=== PATIENT | female | born 1975 | race Caucasian/White ===

== ENCOUNTER → 2021-04-10 11:23 | Outpatient (CLI) | payer OTHER, SELFPAY ==
[2021-04-10 13:17] LABS: Add Manual Diff / Slide Review NO; Basophils Absolute Auto 100 /uL (0-100); Eosinophils Absolute Auto 200 /uL (0-450); Eosinophils Percent Auto 2.5 % (2-4); Hematocrit 36.8 % (36-46); Hemoglobin 12.4 g/dL (12.0-16.0); Lymphocytes Absolute Auto 2300 /uL (1100-4500); Mean Corpuscular HGB Conc 33.8 % (30-36); Mean Corpuscular Hemoglobin 27.4 PG (26-34); Mean Corpuscular Volume 81.1 fL (80-100); Monocytes Absolute Auto 600 /uL (0-900); Monocytes Percent Auto 7.9 % (3-14); Neutrophils Absolute Auto 4000 /uL (1500-7000); Neutrophils Percent Auto 56.6 % (50-75); Platelet Count 286 X10^3/uL (150-400); Red Blood Cell Count 4.54 X10^6/uL (4.0-5.2); Red Cell Distribution Width 13.8 % (11.6-14.8); White Blood Cell Count 7.1 X10^3/uL (4.5-11.0)
[2021-04-10 13:38] LABS: Erythrocyte Sedimentation Rate 32 MM/HR (0-20)
[2021-04-10 13:53] LABS: Alanine Aminotransferase 22 IU/L (<35); Albumin 4.5 g/dL (3.5-5.0); Albumin Globulin Ratio 1.5 (1.0-2.8); Alkaline Phosphatase 55 U/L (38-126); Aspartate Aminotransferase 24 IU/L (14-36); BUN Creatinine Ratio 15.9 (6-22); Bilirubin Total 0.5 mg/dL (0.2-1.3); Blood Urea Nitrogen 11 mg/dL (7-17); Calcium 9.8 mg/dL (8.4-10.2); Carbon Dioxide 26 mmol/L (22-32); Chloride 104 mmol/L (98-107); Estimated Glomerular Filt Rate > 60.0 mL/min (>60); Glucose 77 mg/dL (70-100); HEMOLYSIS < 15 (0-50); Potassium 4.2 mmol/L (3.4-5.1); Sodium 138 mmol/L (137-145); Total Protein 7.5 g/dL (6.3-8.2)
== END ==
PROVIDERS: PCP Physician Assistant; Referring Provider Physician Assistant; Visit Provider Physician Assistant
DX: M25.50 Pain in unspecified joint (principal); Z86.32 Personal history of gestational diabetes
CPT/HCPCS: 36415; 80053; 83036; 85025; 85651

== ENCOUNTER → 2021-10-17 08:05 | Outpatient (CLI) | payer OTHER, SELFPAY ==
--- NOTE | 2021-10-17 | DI.ECHO.S_ITS ---
[facility]---------+ [facility] +---------+ : : [address] : [place] [address] : : : : [id number] : : : : Phone: [phone]+ Echocardiogram Report + + :Name: CHAPIN HURTADO Study Date: 10/17/2021 Height: 64 in : :[facility] ReadingLocation: Weight: 182 lb : : Gender: Female BSA: 1.9 m2 : :: 1975 Age: 46 yrs BP: 142/90 mmHg: :Reason For Study: Aortic valve regurgitation : :Ordering Physician: LORRAINE, : :ARIAN Performed By: Willis Hillman : :Referring: ARIAN PETERS : + + Interpretation Summary The left ventricle is normal in size and wall thickness. The ejection fraction is estimated to be 60-65%. The right ventricle is normal in size and function. There is mild to moderate aortic regurgitation. The IVC is of normal diameter and collapses greater than 50% with a sniff. This suggests a low right atrial pressure of 3 mm Hg. Procedure: A two-dimensional transthoracic echocardiogram with color flow and Doppler was performed. The study quality was technically good. There is no prior echocardiogram noted for this patient. The patient was in normal sinus rhythm during the exam. Left Ventricle: The left ventricle is normal in size and wall thickness. There is no thrombus. Left ventricular systolic function is normal. The ejection fraction is estimated to be 60-65%. There are no focal wall motion abnormalities. Diastolic parameters suggest a relaxation abnormality of the left ventricle, consistent with probable normal filling pressures. Right Ventricle: The right ventricle is normal in size and function. Atria: Both atria are normal in size. The interatrial septum grossly appears intact with no obvious evidence for an atrial septal defect. Mitral Valve: The mitral valve leaflets appear borderline thickened, but open well. There is trace mitral regurgitation. Aortic Valve: There is discrete nodular thickening of the non- coronary cusp. The aortic valve is trileaflet. The aortic valve opens well. The aortic valve is mildly calcified. There is no aortic valve stenosis. There is mild to moderate aortic regurgitation. Tricuspid Valve: The tricuspid valve is normal in structure and function. There is trace tricuspid regurgitation. Pulmonary artery pressures cannot be estimated because of the lack of a measurable TR jet velocity. Pulmonic Valve: The pulmonic valve is normal in structure and function. There is no pulmonic valvular regurgitation. Great Vessels: The aortic root is normal size. The dimensions of the ascending aorta are normal. The IVC is of normal diameter and collapses greater than 50% with a sniff. This suggests a low right atrial pressure of 3 mm Hg. Pericardium/ Pleura There is no pericardial effusion. There is no pleural effusion. MMode/2D Measurements & Calculations LVIDd: 4.8 cm LVOT diam: 2.1 cm LVIDs: 3.2 cm asc Aorta Diam: 3.4 cm FS: 33.3 % IVSd: 0.90 cm LVPWd: 1.0 cm LV brady. diameter/BSA (cm/m^2): 2.6 LV sys. diameter/BSA (cm/m^2): 1.7 LA dimension: 3.1 cm RA long axis: 4.6 cm LA A2 area: 15.3 cm2 LA A4 area: 17.9 cm2 LA length (vol): 5.4 cm LA vol: 42.9 ml LA vol index: 22.8 ml/m2 TAPSE_phl: 2.7 cm Doppler Measurements & Calculations Ao V2 max: 142.0 cm/sec LVOT Max Kenyon: 126.0 cm/sec Ao V2 mean: 109.0 cm/sec LV V1 max P.4 mmHg Ao max P.0 mmHg LV V1 VTI: 25.9 cm Ao mean P.0 mmHg JEWEL(I,D): 2.8 cm2 Ao V2 VTI: 32.1 cm JEWEL(V,D): 3.1 cm2 sev ratio: 0.81 JEWEL indexed to BSA (cm^2/m^2): 1.5 AI P1/2t: 709.2 msec AI dec slope: 182.5 cm/sec2 MV E max kenyon: 76.2 cm/sec SV(LVOT): 89.7 ml MV A max kenyon: 78.1 cm/sec MV E/A: 0.98 Med Peak E' Kenyon: 6.6 cm/sec E/E' med: 11.6 Lat Peak E' Kenyon: 11.1 cm/sec E/E' lat: 6.9 E/e' average: 9.2 MV dec time: 0.19 sec AV VR_phl: 0.89 MV P1/2t-pr_phl: 54.0 msec JEWEL(VTI)/BSA_phl: 1.5 Reading Physician:11:23 AM
== END ==
PROVIDERS: PCP Family Medicine; Referring Provider Family Medicine; Visit Provider Physician Assistant
DX: I35.1 Nonrheumatic aortic (valve) insufficiency (principal)
CPT/HCPCS: 93306

== ENCOUNTER → 2021-11-07 08:38 | Outpatient (CLI) | payer OTHER, SELFPAY ==
[2021-11-07 09:14] LABS: Add Manual Diff / Slide Review NO; Basophils Absolute Auto 100 /uL (0-100); Basophils Percent Auto 1.1 % (0-2); Eosinophils Absolute Auto 200 /uL (0-450); Eosinophils Percent Auto 2.5 % (2-4); Hematocrit 37.8 % (36-46); Hemoglobin 12.8 g/dL (12.0-16.0); Lymphocytes Absolute Auto 1900 /uL (1100-4500); Lymphocytes Percent Auto 25.9 % (25-40); Mean Corpuscular Hemoglobin 27.3 PG (26-34); Mean Corpuscular Volume 80.5 fL (80-100); Monocytes Absolute Auto 600 /uL (0-900); Monocytes Percent Auto 7.8 % (3-14); Neutrophils Absolute Auto 4600 /uL (1500-7000); Neutrophils Percent Auto 62.7 % (50-75); Platelet Count 284 X10^3/uL (150-400); Red Blood Cell Count 4.69 X10^6/uL (4.0-5.2); Red Cell Distribution Width 14.4 % (11.6-14.8); White Blood Cell Count 7.4 X10^3/uL (4.5-11.0)
[2021-11-07 09:30] LABS: Alanine Aminotransferase 21 IU/L (<35); Albumin 4.3 g/dL (3.5-5.0); Albumin Globulin Ratio 1.3 (1.0-2.8); Alkaline Phosphatase 55 U/L (38-126); Aspartate Aminotransferase 23 IU/L (14-36); BUN Creatinine Ratio 16.2 (6-22); Bilirubin Total 0.5 mg/dL (0.2-1.3); Blood Urea Nitrogen 11 mg/dL (7-17); Calcium 8.9 mg/dL (8.4-10.2); Carbon Dioxide 25 mmol/L (22-32); Chloride 102 mmol/L (98-107); Cholesterol 165 mg/dL (140-199); Estimated Glomerular Filt Rate > 60 mL/min (>60); Globulin 3.4 g/dL (1.7-4.1); Glucose 89 mg/dL (70-100); HDL Cholesterol 58 mg/dL (40-60); HEMOLYSIS < 15 (0-50); LDL Cholesterol Calculated 89 mg/dL (<100); Potassium 3.9 mmol/L (3.4-5.1); Sodium 135 mmol/L (137-145); Total Protein 7.7 g/dL (6.3-8.2); Triglycerides 91 mg/dL (35-150)
[2021-11-07 09:38] LABS: Erythrocyte Sedimentation Rate 29 MM/HR (0-20)
[2021-11-07 09:56] LABS: Vitamin D 25 Hydroxy (D3) 50.7 ng/mL (30.0-100.0)
[2021-11-07 10:35] LABS: Folate 6.5 ng/mL (2.76-20.0); Vitamin B12 302 pg/mL (239-931)
== END ==
PROVIDERS: PCP Family Medicine; Referring Provider Family Medicine; Visit Provider Family Medicine
DX: I35.1 Nonrheumatic aortic (valve) insufficiency (principal); I10 Essential (primary) hypertension; J45.20 Mild intermittent asthma, uncomplicated; E56.9 Vitamin deficiency, unspecified; L12.1 Cicatricial pemphigoid
CPT/HCPCS: 36415; 80053; 80061; 82306; 82607; 82746; 85025; 85651

== ENCOUNTER → 2021-12-09 09:46 | Outpatient (CLI) | payer OTHER, SELFPAY ==
[2021-12-11 14:48] LABS: QuantiFERON Mitogen Value >10.00 IU/mL (.); QuantiFERON Nil Value 0.02 IU/mL (.); QuantiFERON TB Gold Plus Negative (Negative); QuantiFERON TB1 Ag Value 0.21 IU/mL (.); QuantiFERON TB2 Ag Value 0.05 IU/mL (.)
== END ==
PROVIDERS: PCP Family Medicine; Referring Provider Dermatology; Visit Provider Dermatology
DX: L40.0 Psoriasis vulgaris (principal)
CPT/HCPCS: 36415; 86480

== ENCOUNTER → 2022-05-15 08:18 | Outpatient (CLI) | payer OTHER, SELFPAY ==
[2022-05-15 08:42] LABS: Add Manual Diff / Slide Review NO; Basophils Absolute Auto 100 /uL (0-100); Eosinophils Absolute Auto 200 /uL (0-450); Eosinophils Percent Auto 3.2 % (2-4); Hematocrit 39.8 % (36-46); Hemoglobin 13.6 g/dL (12.0-16.0); Lymphocytes Absolute Auto 2400 /uL (1100-4500); Lymphocytes Percent Auto 37.5 % (25-40); Mean Corpuscular HGB Conc 34.3 % (30-36); Mean Corpuscular Hemoglobin 28.3 PG (26-34); Mean Corpuscular Volume 82.5 fL (80-100); Monocytes Absolute Auto 500 /uL (0-900); Monocytes Percent Auto 7.5 % (3-14); Neutrophils Absolute Auto 3300 /uL (1500-7000); Neutrophils Percent Auto 50.8 % (50-75); Platelet Count 276 X10^3/uL (150-400); Red Blood Cell Count 4.82 X10^6/uL (4.0-5.2); Red Cell Distribution Width 14.1 % (11.6-14.8); White Blood Cell Count 6.4 X10^3/uL (4.5-11.0)
[2022-05-15 08:59] LABS: Erythrocyte Sedimentation Rate 17 MM/HR (0-20)
[2022-05-15 09:19] LABS: Alanine Aminotransferase 23 IU/L (<35); Albumin 4.4 g/dL (3.5-5.0); Albumin Globulin Ratio 1.3 (1.0-2.8); Alkaline Phosphatase 55 U/L (38-126); Aspartate Aminotransferase 25 IU/L (14-36); BUN Creatinine Ratio 16.9 (6-22); Bilirubin Total 0.6 mg/dL (0.2-1.3); Blood Urea Nitrogen 11 mg/dL (7-17); Calcium 9.3 mg/dL (8.4-10.2); Carbon Dioxide 31 mmol/L (22-32); Chloride 101 mmol/L (98-107); Cholesterol 191 mg/dL (140-199); Estimated Glomerular Filt Rate > 60 mL/min (>60); Globulin 3.3 g/dL (1.7-4.1); Glucose 88 mg/dL (70-100); HDL Cholesterol 69 mg/dL (40-60); HEMOLYSIS < 15 (0-50); LDL Cholesterol Calculated 105 mg/dL (<100); Potassium 3.8 mmol/L (3.4-5.1); Sodium 139 mmol/L (137-145); Total Protein 7.7 g/dL (6.3-8.2); Triglycerides 83 mg/dL (35-150)
[2022-05-15 09:41] LABS: Microalbumin Urine Random < 0.6 mg/dL (0-1.6)
== END ==
PROVIDERS: PCP Family Medicine; Referring Provider Family Medicine; Visit Provider Family Medicine
DX: I10 Essential (primary) hypertension (principal); I35.1 Nonrheumatic aortic (valve) insufficiency; L12.1 Cicatricial pemphigoid; L40.50 Arthropathic psoriasis, unspecified
CPT/HCPCS: 36415; 80053; 80061; 82043; 82570; 85025; 85651

== ENCOUNTER 2023-12-26 18:20 | Emergency (ER) | payer OTHER, SELFPAY ==
[2023-12-26] VITALS (10 sets, daily range): BP systolic 174–219; BP diastolic 81–98; PULSE 60–72; RESP 14–24; TEMP 37; O2SAT 96–99; BMI 32.2
--- NOTE | 2023-12-26 18:36 | EKG_ITS ---
[place] [id number] [place] [id number] Test Date: 2023-12-26 Pat Name: Ashley Patel Department: Room: Gender: Female Hired Hand: DENY : 1975 Requested By: Order Number: [id number] Reading MD: Charles Marquis Measurements Intervals [place] Rate: 66 P: 11 MD: 148 QRS: -21 QRSD: 78 T: 11 QT: 392 QTc: 410 Interpretive Statements Normal sinus rhythm Minimal voltage criteria for LVH, may be normal variant ( R in aVL ) Cannot rule out Anterior infarct , age undetermined Electronically Signed On 12-29-2023 14:43:15 PDT by Charles Marquis
--- NOTE | 2023-12-26 18:36 | DI.RAD.S_ITS ---
PROCEDURE: XR CHEST 1V INDICATIONS: chest pain TECHNIQUE: One view of the chest was acquired. COMPARISON: None. FINDINGS: Surgical changes and devices: None. Lungs and pleura: Lungs are clear. No pleural effusions or pneumothorax. Mediastinum: Mediastinal contours appear normal. Heart size is normal. Bones and chest wall: No suspicious bony lesions. Overlying soft tissues appear unremarkable. IMPRESSION: No acute cardiopulmonary abnormality is seen. Dictated by: Zachary Alejandra M.D. on 12/26/2023 at 19:13 Approved by: Zachary Alejandra M.D. on 12/26/2023 at 19:13
[2023-12-26 18:57] LABS: Add Manual Diff / Slide Review NO; Basophils Absolute Auto 100 /uL (0-100); Basophils Percent Auto 1.3 % (0-2); Eosinophils Absolute Auto 300 /uL (0-450); Eosinophils Percent Auto 3.5 % (2-4); Hematocrit 41.3 % (36-46); Hemoglobin 13.8 g/dL (12.0-16.0); Lymphocytes Absolute Auto 2000 /uL (1100-4500); Lymphocytes Percent Auto 24.5 % (25-40); Mean Corpuscular HGB Conc 33.5 % (30-36); Mean Corpuscular Hemoglobin 28.4 PG (26-34); Mean Corpuscular Volume 84.7 fL (80-100); Monocytes Absolute Auto 700 /uL (0-900); Monocytes Percent Auto 8.5 % (3-14); Neutrophils Absolute Auto 5200 /uL (1500-7000); Neutrophils Percent Auto 62.2 % (50-75); Platelet Count 319 X10^3/uL (150-400); Red Blood Cell Count 4.88 X10^6/uL (4.0-5.2); Red Cell Distribution Width 13.5 % (11.6-14.8); White Blood Cell Count 8.4 X10^3/uL (4.5-11.0)
--- NOTE | 2023-12-26 19:21 | PC.NURSE ---
Pt awake and alert sitting in stretcher looking at phone. No distress noted at this time. No needs reported at this time. Pt connected to cardiac, blood pressure, pulse ox, and resp monitors with alarms on and audible. Call light within reach.
[2023-12-26 19:25] LABS: INR 0.9 (0.9-1.3); Prothrombin Time 10.4 SECONDS (9.4-12.5)
[2023-12-26 19:28] LABS: PTT Partial Thromboplastin Tim 34 SECONDS (25.1-36.5)
[2023-12-26 19:30] LABS: Alanine Aminotransferase 28 IU/L (<35); Albumin 4.6 g/dL (3.5-5.0); Albumin Globulin Ratio 1.4 (1.0-2.8); Alkaline Phosphatase 59 U/L (38-126); Aspartate Aminotransferase 27 IU/L (14-36); Bilirubin Total 0.4 mg/dL (0.2-1.3); Blood Urea Nitrogen 12 mg/dL (7-17); Calcium 9.4 mg/dL (8.4-10.2); Carbon Dioxide 24 mmol/L (22-32); Chloride 107 mmol/L (98-107); Creatine Kinase 40 U/L (30-135); Estimated Glomerular Filt Rate > 60 mL/min (>60); Globulin 3.3 g/dL (1.7-4.1); Glucose 87 mg/dL (70-100); HEMOLYSIS < 15 (0-50); Lipase 256 U/L (23-300); Magnesium 2.1 mg/dL (1.6-2.3); Potassium 3.8 mmol/L (3.4-5.1); Sodium 140 mmol/L (137-145); Total Protein 7.9 g/dL (6.3-8.2)
[2023-12-26 19:39] LABS: Influenza A - CEPHEID Flu A NEGATIVE (NEGATIVE); Influenza B - CEPHEID Flu B NEGATIVE (NEGATIVE)
[2023-12-26 19:42] LABS: NT-proBNP (BNP-Adult 18+) 94 pg/mL (<125); Troponin I < 0.012 ng/mL (0.01-0.034)
[2023-12-26 20:12] LABS: COVID-19 CEPHEID 4-PLEX PCR Negative (Negative)
--- NOTE | 2023-12-26 20:23 | ED.CHESTPAIN ---
HPI - Chest Pain General Chief Complaint: Chest Pain Stated Complaint: tired, tightness in chest, elevated blood pressure Time Seen by Provider: 12/26/23 19:47 Source: patient Mode of arrival: Family Vehicle Limitations: no limitations History of Present Illness HPI narrative: 48-year-old female with no known history of coronary artery disease, has one-week duration of cough, fatigue, right-sided chest discomfort that is worse with deep breathing and coughing. Referred from walk-in clinic for further evaluation. No fevers or chills recent. She has not currently taking any antibiotics. No history of blood clots, no leg pain or swelling symptoms. Related Data Home Medications Medication Instructions Recorded Confirmed betamethasone, augmented 0.05 % topical Psoriasis 06/05/23 11/23/23 lotion clonazepam 0.5 mg tablet 0.25 mg PO Anxiety 06/05/23 11/23/23 propranolol 10 mg tablet 10 mg PO Anxiety/nerves public 06/05/23 11/23/23 speaking risankizumab-rzaa 150 mg/mL mg SUBCUT Psoriatic arthritis 06/05/23 11/23/23 subcutaneous pen injector (James) betamethasone valerate 0.1 % topical QD-BID PRN 12/26/23 12/26/23 topical ointment fluocinolone 0.01 % topical body topical PRN 12/26/23 12/26/23 oil Previous Rx's Medication Instructions Recorded lisinopril 20 mg tablet 20 mg PO DAILY High blood pressure 10/08/23 #90 tabs vilazodone 10 mg tablet 10 mg PO DAILY Depression and 11/05/23 anxiety #90 tabs buspirone 5 mg tablet 5 mg PO BID #60 tabs 11/23/23 albuterol sulfate 90 mcg/actuation 2 puff inhalation Q6H PRN 12/26/23 aerosol inhaler shortness of breath or wheezing #8.5 grams Allergies Allergy/AdvReac Type Severity Reaction Status Date / Time ampicillin AdvReac Severe Hives Verified 12/26/23 19:01 [From ampicillin-sulbactam] sulbactam AdvReac Severe Hives Verified 12/26/23 19:01 [From ampicillin-sulbactam] Pencillins AdvReac Severe Hives Uncoded 12/26/23 18:54 Review of Systems Review of Systems Narrative: see HPI Patient History Medical History (Updated 12/26/23 @ 21:10 by Ender Escalona MD) Osteoarthritis (~2014) Allergies (~1978) Anxiety (~1993) Migraines (~1984) Headache Foot pain Chronic back pain (~2007) Carpal tunnel syndrome (~2004) Mumps (~1989) Chicken pox (~1987) Fibroids Lymphocytic colitis (~2014) PVCs (premature ventricular contractions) Aortic regurgitation Depression (~1993) Psoriatic arthritis (~2014) Psoriasis (~1985) Mucous membrane pemphigoid (~2016) Hypertension (~2004) Surgical History (Updated 06/30/23 @ 20:07 by Melanie Steve) Anesthesia History of microdiscectomy (~2014) Status post LASIK surgery (~2013) History of section (~2011) Status post hysteroscopic polypectomy (~2010) Family History (Updated 06/30/23 @ 20:12 by Melanie Steve) Father History of heart disease Hypertension Mental health problem Prostate cancer History of basal cell cancer Mother History of heart disease Sister Down syndrome History of heart disease Mental health problem Grandfather History of heart disease Grandfather History of heart disease Grandmother Breast cancer Social History Smoking Status: Former smoker Smoking Status: Former smoker tobacco type: cigarettes alcohol intake frequency: 0-2 drinks per day Substance Use Type: does not use Exam Narrative Exam Narrative: GENERAL: Well-developed patient, in mild distress. HEAD: Atraumatic. Normocephalic. EYES: Pupils equal round and reactive. Extraocular motions intact. No scleral icterus. No injection or drainage. ENT: Nose without bleeding, purulent drainage. Throat without erythema, tonsillar hypertrophy or exudate. Airway patent. NECK: Trachea midline. Non tender CARDIOVASCULAR: Regular rate and rhythm without murmurs, gallops, or rubs. RESPIRATORY: Clear to auscultation. Breath sounds equal bilaterally. No wheezes, rales, or rhonchi. GASTROINTESTINAL: Abdomen soft, non-tender, nondistended. EXTREMITIES: No edema or joint tenderness. BACK: Nontender without deformity or crepitance. No flank tenderness. NEURO: AOx3. Motor functions grossly nonfocal SKIN: No rash or erythema of visible areas Initial Vital Signs Initial Vital Signs: Vital Signs Pulse Rate 72 12/26/23 18:31 Pulse Oximetry 99 12/26/23 18:31 Course Orders Ordered: ED Orders 12/26/23 18:32 Covid-19 + FLU A/B by PCR Stat 12/26/23 18:36 XR chest 1V Stat EKG-12 Lead Stat 12/26/23 18:46 Complete Blood Count AUTO DIFF Stat Comprehensive Metabolic Panel Stat Lipase Stat Magnesium Stat NT-proBNP (BNP-Adult 18+) Stat PTT Partial Thromboplastin [facility] Stat Prothrombin Time INR Stat Troponin & CK Cardiac Panel Stat 12/26/23 20:06 RT Consult Eval and Treat NOW Vital Signs Vital signs: Vital Signs - 8 hr 12/26/23 18:31 12/26/23 18:32 12/26/23 18:32 Temperature Pulse Rate 72 72 Respiratory Rate Blood Pressure 219/98 H Pulse Oximetry 99 98 Oxygen Delivery Method 12/26/23 18:49 12/26/23 19:00 12/26/23 19:01 Temperature 98.6 F Pulse Rate 62 69 72 Respiratory Rate 18 24 21 Blood Pressure 219/98 H Pulse Oximetry 98 98 99 Oxygen Delivery Method Room Air Room Air Room Air 12/26/23 19:01 12/26/23 19:30 12/26/23 19:30 Temperature Pulse Rate 61 Respiratory Rate 20 Blood Pressure 210/94 H 174/81 H Pulse Oximetry 97 Oxygen Delivery Method Room Air 12/26/23 20:00 12/26/23 20:00 Temperature Pulse Rate 67 Respiratory Rate 22 Blood Pressure 184/86 H Pulse Oximetry 97 Oxygen Delivery Method Room Air MDM - Chest Pain Lab Data Attestation: I reviewed the patient's lab results. Lab results narrative: White blood cell count 8400, hemoglobin 13.8, platelets adequate. Basic metabolic function panel negative. LFTs normal. Lipase normal. Troponin negative. COVID/RSV/flu negative 12/26/23 18:46 12/26/23 18:46 Labs: Lab Results 12/26/23 12/26/23 Range/Units 18:32 18:46 WBC 8.4 (4.5-11.0) X10^3/uL RBC 4.88 (4.0-5.2) X10^6/uL Hgb 13.8 (12.0-16.0) g/dL Hct 41.3 (36-46) % MCV 84.7 (80-100) fL MCH 28.4 (26-34) PG MCHC 33.5 (30-36) % RDW 13.5 (11.6-14.8) % Plt Count 319 (150-400) X10^3/uL Neut % (Auto) 62.2 (50-75) % Lymph % (Auto) 24.5 L (25-40) % [place] % (Auto) 8.5 (3-14) % Eos % (Auto) 3.5 (2-4) % Baso % (Auto) 1.3 (0-2) % Neut # (Auto) 5200 (3446-7167) /uL Lymph # (Auto) 2000 (1339-3751) /uL [place] # (Auto) 700 (0-900) /uL Eos # (Auto) 300 (0-450) /uL Baso # (Auto) 100 (0-100) /uL PT 10.4 (9.4-12.5) SECONDS INR 0.9 (0.9-1.3) APTT 34 (25.1-36.5) SECONDS Sodium 140 (137-145) mmol/L Potassium 3.8 (3.4-5.1) mmol/L Chloride 107 (98-107) mmol/L Carbon Dioxide 24 (22-32) mmol/L BUN 12 (7-17) mg/dL Creatinine 0.75 (0.52-1.04) mg/dL Estimated GFR > 60 (>60) mL/min BUN/Creatinine Ratio 16.0 (6-22) Glucose 87 (70-100) mg/dL Calcium 9.4 (8.4-10.2) mg/dL Magnesium 2.1 (1.6-2.3) mg/dL Total Bilirubin 0.4 (0.2-1.3) mg/dL AST 27 (14-36) IU/L ALT 28 (<35) IU/L Alkaline Phosphatase 59 (38-126) U/L Total Creatine Kinase 40 (30-135) U/L Troponin I < 0.012 (0.01-0.034) ng/mL NT-Pro-B Natriuret Pep 94 (<125) pg/mL Total Protein 7.9 (6.3-8.2) g/dL Albumin 4.6 (3.5-5.0) g/dL Globulin 3.3 (1.7-4.1) g/dL Albumin/Globulin Ratio 1.4 (1.0-2.8) Lipase 256 (23-300) U/L SARS-CoV-2 (PCR) Negative (Negative) Influenza A (RT-PCR) Flu a negative (NEGATIVE) Influenza B (RT-PCR) Flu b negative (NEGATIVE) Imaging Data Chest x-ray: Radiologist's Impression: [address] [address] XRay Report Signed Patient: Ashley Patel MR#: [id number] : 1975 Acct:[id number] Age/Sex: 48 / F Date of Service: 12/26/23 Loc: ED Accession Number: [id number] Procedure: XR chest 1V Ordering Provider: Ender Escalona MD PROCEDURE: XR CHEST 1V INDICATIONS: chest pain TECHNIQUE: One view of the chest was acquired. COMPARISON: None. FINDINGS: Surgical changes and devices: None. Lungs and pleura: Lungs are clear. No pleural effusions or pneumothorax. Mediastinum: Mediastinal contours appear normal. Heart size is normal. Bones and chest wall: No suspicious bony lesions. Overlying soft tissues appear unremarkable. IMPRESSION: No acute cardiopulmonary abnormality is seen. Dictated by: Zachary Alejandra M.D. on 12/26/2023 at 19:13 Approved by: Zachary Alejandra M.D. on 12/26/2023 at 19:13 ECG Data Attestation: I personally reviewed and interpreted this ECG as follows: Interpretation: Normal sinus rhythm with rate of 66, no obvious ST segment elevation or depression changes. T-wave inversion lead 3 upright in leads 2 and F. NH 148, QRS 78, QTC 410. MDM Narrative Medical decision making narrative: 48-year-old female with recent coughing, right-sided chest discomfort, worse with deep breathing, some reproduction on palpation, likely chest wall. EKG reassuring, troponin negative. Doubt ACS. COVID/flu swabs negative. Chest x-ray unremarkable. Trial of albuterol for cough control. She declines Tessalon prescription, has not worked for her in the past. She has history of hypertension, elevated blood pressure noted, she is taking lisinopril 10 mg daily which has been higher dose in the past. Consider increased dose to 20 mg lisinopril for better blood pressure control, recheck early next week. Stable, discharged home, return precautions discussed Discharge Plan Departure Patient Disposition: Home Clinical Impression: Acute upper respiratory infection, Chest wall pain Instructions: DI for Viral Upper Respiratory Infection -- Adult, DI for Atypical Chest Pain Activity Restrictions/Additional Instructions: Recent cough, right-sided chest discomfort, EKG and blood testing not suggestive of heart attack at this time. Chest x-ray negative. Swab for COVID and influenza and RSV negative. Likely viral upper respiratory infection with right-sided chest wall discomfort. Doubt acute coronary syndrome, doubt blood clots to the lungs, no injury trauma known. Consider trial of albuterol bronchodilator for cough control of cough symptoms, to use with spacer for better delivery medication, usually 2 puffs 4 times daily for the next few days and then as needed. Blood pressure elevated, for which you take lisinopril 10 mg daily, prior higher dosing, consider increased dosing to 20 mg daily for now, recheck blood pressure early next week with your regular doctor. Return to this/nearest emergency department for any change worsening symptoms or any concerns prior Prescriptions: New albuterol sulfate 90 mcg/actuation HFA aerosol inhaler 2 puff inhalation Q6H PRN (Reason: shortness of breath or wheezing) Qty: 8.5 0RF No Action buspirone 5 mg tablet 5 mg PO BID Qty: 60 0RF Skyrizi 150 mg/mL pen injector SUBCUT propranolol 10 mg tablet 10 mg PO Patient Comments: I get weird stage fright and flop sweat when speaking in front of people. This medication helps. I do this maybe once per month. Used to be more often in my prior career. clonazepam 0.5 mg tablet 0.25 mg PO Patient Comments: I take 1-2/month for anxiety, mainly that keeps me from sleeping betamethasone, augmented 0.05 % lotion topical fluocinolone 0.01 % oil topical PRN betamethasone valerate 0.1 % ointment topical QD-BID PRN lisinopril 20 mg tablet 20 mg PO DAILY Qty: 90 0RF vilazodone 10 mg tablet 10 mg PO DAILY MDD 1 Tablet daily Qty: 90 4RF Referrals: Alana Kapadia MD [Primary Care Provider] - Stand Alone Forms: Patient Portal/API
== END 2023-12-26 21:18 | disposition home or self-care (01) ==
PROVIDERS: Emergency Provider Emergency Medicine; PCP Family Medicine
DX: J06.9 Acute upper respiratory infection, unspecified (principal); R07.89 Other chest pain; R05.9 Cough, unspecified; Z11.52 Encounter for screening for COVID-19
CPT/HCPCS: 36415; 71045; 80053; 82550; 83690; 83735; 83880; 84484; 85025; 85610; 85730; 87635; 93005; 99284

== ENCOUNTER → 2024-01-01 12:38 | Outpatient (CLI) | payer OTHER, SELFPAY ==
[2024-01-01 13:17] LABS: BUN Creatinine Ratio 16.5 (6-22); Blood Urea Nitrogen 13 mg/dL (7-17); Calcium 9.6 mg/dL (8.4-10.2); Carbon Dioxide 26 mmol/L (22-32); Chloride 102 mmol/L (98-107); Estimated Glomerular Filt Rate > 60 mL/min (>60); Glucose 87 mg/dL (70-100); HEMOLYSIS < 15 (0-50); Potassium 4.1 mmol/L (3.4-5.1); Sodium 137 mmol/L (137-145)
[2024-01-05 06:08] LABS: Creatinine, Random Urine 49.7 mg/dL (Not Estab.); Metaneph/ Creatinine Ratio 0.4 (0.0-1.0); Metanephrine, Ur 51 ug/L (Undefined); Normetanephrine, Urine 108 ug/L (Undefined)
[2024-01-14 18:36] LABS: Aldosterone/Renin Activity Rat 18.5 (.); Plama Renin, LC/MS/MS 0.596 ng/mL/hr (.)
== END ==
PROVIDERS: PCP Family Medicine; Referring Provider Family Medicine; Visit Provider Family Medicine
DX: I10 Essential (primary) hypertension (principal)
CPT/HCPCS: 36415; 80048; 82088; 82570; 83835; 84244

== ENCOUNTER → 2024-02-09 08:03 | Outpatient (CLI) | payer OTHER, SELFPAY ==
--- NOTE | 2024-02-09 08:04 | DI.ECHO.S_ITS ---
[facility] : : [address] : : [place] : : [id number] : : Phone: [phone] Echocardiogram Report + + :Name: CHAPIN HURTADO Study Date: 02/09/2024 Height: 64 in : :Hospital ReadingLocation: Weight: 185 lb : : Gender: Female BSA: 1.9 m2 : :: 1975 Age: 49 yrs BP: 116/81 mmHg: :Reason For Study: UNCONTROLLED HYPERTENSION : :Ordering Physician: ROSA, : :KADIE Performed By: Viktor Venegas : :Referring: KADIE LEE : + + Interpretation Summary 1. The left ventricular contractility is normal. Estimate ejection fraction is greater than 60% with no segmental wall motion abnormalities. No LVH. Unable to comment on diastolic function. 2. The right ventricular contractility is normal. 3. All cardiac chambers are of normal size. 4. There is a calcified nodule measuring 0.6 x 0.9 cm on the noncoronary cusp of the aortic valve with associated moderate insufficiency. Cannot exclude a healed vegetation. 5. No obvious intracardiac shunts. 6. No obvious intracardiac masses nor thrombi. 7. No hemodynamically significant pericardial effusion. 8. Low right-sided filling pressures. 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 When compared with previous echocardiogram, there appears to be mild progression of the aortic insufficiency. Procedure: A two-dimensional transthoracic echocardiogram with color flow and Doppler was performed. The study quality was technically adequate. Comparison is made with the echocardiogram of 10/17/2021. The patient was in normal sinus rhythm during the exam. Left Ventricle: The left ventricle is normal in size. There is normal left ventricular wall thickness. There is no ventricular septal defect visualized. The ejection fraction is estimated to be 60-65%. There are no focal wall motion abnormalities. Right Ventricle: The right ventricle is normal in size and function. Atria: The left atrium grossly appears normal in size. Right atrial size is normal. There is no Doppler evidence for an interatrial shunt. Mitral Valve: The mitral valve leaflets appear borderline thickened, but open well. The mitral valve leaflets appear to open well. There is trace mitral regurgitation. Aortic Valve: The aortic valve is trileaflet. The aortic valve opens well. There is discrete nodular thickening of the non- coronary cusp. There is moderate aortic regurgitation. Tricuspid Valve: The tricuspid valve leaflets are thin and pliable. There is a trace or physiologic amount of tricuspid regurgitation. Pulmonic Valve: The pulmonic valve is normal in structure and function. There is no pulmonic valvular regurgitation. Great Vessels: The aortic root is normal size. The dimensions of the ascending aorta are normal. The pulmonary artery is normal size. The IVC is of normal diameter and collapses greater than 50% with a sniff. This suggests a low right atrial pressure of 3 mm Hg. Pericardium/ Pleura There is no pericardial effusion. There is no pleural effusion. MMode/2D Measurements & Calculations LVIDd: 4.9 cm LVOT diam: 2.0 cm LVIDs: 3.2 cm Ao root diam: 3.2 cm FS: 34.0 % asc Aorta Diam: 3.2 cm EPSS: 0.46 cm IVSd: 0.86 cm LVPWd: 0.97 cm LV brady. diameter/BSA (cm/m^2): 2.6 LV sys. diameter/BSA (cm/m^2): 1.7 LA A4 area: 16.5 cm2 RA long axis: 4.6 cm LA length (vol): 4.9 cm RA area: 12.6 cm2 RA vol: 29.2 ml RA : 15.5 ml/m2 IVC diam: 1.2 cm RVD1 (basal): 3.2 cm LVAd ap4: 17.3 cm2 RVD2 (mid): 2.3 cm TAPSE: 2.9 cm Doppler Measurements & Calculations Ao V2 max: 225.7 cm/sec LVOT Max [place]: 148.8 cm/sec Ao V2 mean: 153.6 cm/sec LV V1 max P.9 mmHg Ao max P.4 mmHg LV V1 VTI: 31.9 cm Ao mean P.7 mmHg JEWEL(I,D): 2.3 cm2 Ao V2 VTI: 45.6 cm JEWEL(V,D): 2.2 cm2 sev ratio: 0.70 JEWEL indexed to BSA (cm^2/m^2): 1.2 MV E max kenyon: 87.0 cm/sec PA V2 max: 108.3 cm/sec MV A max kenyon: 93.5 cm/sec PA V2 mean: 73.4 cm/sec MV E/A: 0.93 PA mean P.6 mmHg Med Peak E' Ken[place]: 8.1 cm/sec PA pr(Accel): 0.22 mmHg E/E' med: 10.8 Lat Peak E' Ken[place]: 7.5 cm/sec E/E' lat: 11.5 E/e' average: 11.2 MV dec time: 0.21 sec SV(LVOT): 104.7 ml Reading Physician:
== END ==
PROVIDERS: PCP Family Medicine; Referring Provider Family Medicine; Visit Provider Family Medicine
DX: I35.1 Nonrheumatic aortic (valve) insufficiency (principal); I10 Essential (primary) hypertension
CPT/HCPCS: 93306

== ENCOUNTER → 2024-04-25 07:33 | Outpatient (CLI) | payer OTHER, SELFPAY ==
--- NOTE | 2024-04-25 07:34 | DI.US.S_ITS ---
PROCEDURE: US RENAL COMPLETE INDICATIONS: check for artery stenosis TECHNIQUE: Real-time scanning was performed of the kidneys, with image documentation. COMPARISON: None. FINDINGS: Kidneys: Kidneys are normal in size. Right kidney measures 11.9 cm long; left kidney measures 12.4 cm long. Right renal cortical thickness is 1.3 cm; left renal cortical thickness is 1.3 cm. Renal cortical echotexture is normal. No hydronephrosis or nephrolithiasis. No suspicious solid mass lesions. Aortic peak systolic velocity is 82.0 cm/second. Right renal artery peak systolic velocity measures up to 168 centimeters/second with renal artery aortal ratio of 2.0. Left renal artery peak systolic velocity measures up to 49 cm/second with RAR of 0.6. Bladder: Not evaluated. Miscellaneous: No free pelvic fluid. IMPRESSION: No sonographic evidence of hemodynamically significant renal artery stenosis. Dictated by: Cipriano Cloud M.D. on 04/25/2024 at 11:27 Approved by: Cipriano Cloud M.D. on 04/25/2024 at 11:31
== END ==
PROVIDERS: PCP Family Medicine; Referring Provider Family Medicine; Visit Provider Family Medicine
DX: I10 Essential (primary) hypertension (principal)
CPT/HCPCS: 76770

== ENCOUNTER → 2024-06-23 15:54 | Outpatient (CLI) | payer OTHER, SELFPAY ==
--- NOTE | 2024-06-23 15:55 | DI.MG.S_ITS ---
MM screening mammo BI: 06/23/2024. BI-RADS: 1 CLINICAL: 49-year old female for bilateral screening mammogram. Tyrer-Cuzick lifetime risk of 24.2%. No personal or first-degree family history of breast cancer. Current reported family history of breast cancer: paternal grandmother. History of ovarian cancer in one first-degree relative. PRIOR EXAMS: 06/01/2020, 04/26/2019, 09/24/2016. MAMMOGRAPHY TECHNIQUE: 2D and 3D (tomosynthesis) digital mammographic views obtained, with additional images as needed for full coverage. Current study was also evaluated with a Computer Aided Detection (CAD) system. DENSITY C. The breasts are heterogeneously dense, which may obscure small masses. MAMMOGRAPHY FINDINGS Bilateral: No suspicious mass, asymmetry, microcalcification, or other abnormality seen. IMPRESSION: * No evidence of malignancy. RECOMMENDATIONS Bilateral * According to the Tyrer-Cuzick Risk Assessment Model, based on the information provided your patient has a greater than 20% lifetime risk for developing breast cancer. Consider supplemental screening with breast MRI and participation in a high risk screening program. * Annual screening mammography. OVERALL ASSESSMENT CATEGORY BI-RADS-1: Negative. The [employer] recommends annual screening mammography beginning at age 40 for women with average risk of breast cancer. ELECTRONICALLY SIGNED: aJckson Dupont M.D. on 06/24/2024 at 09:01:18 AM PT Interpreting Station ID: [id number]
== END ==
PROVIDERS: PCP Family Medicine; Referring Provider Family Medicine; Visit Provider Family Medicine
DX: Z12.31 Encounter for screening mammogram for malignant neoplasm of breast (principal); Z80.3 Family history of malignant neoplasm of breast; Z80.41 Family history of malignant neoplasm of ovary; R92.333 Mammographic heterogeneous density, bilateral breasts
CPT/HCPCS: 77063; 77067

== ENCOUNTER → 2025-02-01 12:35 | Outpatient (CLI) | payer OTHER, SELFPAY ==
--- NOTE | 2025-02-01 12:36 | DI.RAD.S_ITS ---
PROCEDURE: XR ABDOMEN MIN 2V INDICATIONS: Possible constipation TECHNIQUE: 2 views of the abdomen were acquired. COMPARISON: None. FINDINGS: Surgical changes and devices: None. Bowel: No pneumoperitoneum. Mildly prominent nondilated loops of small bowel in the left abdomen. Mild stool burden in the right colon. Soft tissues: No masses; visualized solid organ contours appear normal in size. No suspicious abdominal calcifications. Bones: No suspicious bony abnormalities. IMPRESSION: Prominent nondilated loops of small bowel in the left abdomen, correlate for a nonspecific enteritis. Mild stool burden in the right colon. Approved by: Nigel Jacinto M.D. on 02/01/2025 at 13:33
== END ==
PROVIDERS: PCP Family Medicine; Referring Provider Nurse Practitioner Family; Visit Provider Nurse Practitioner Family
DX: K59.00 Constipation, unspecified (principal)
CPT/HCPCS: 74019